=== PATIENT | male | born 1975 | race American Indian/Alaskan Native ===

== ENCOUNTER 2021-10-26 21:07 | Emergency (ER) | payer MEDICAID | END 2021-10-26 22:45 | disposition home or self-care (01) | LOC: JP.ED 21:07 | DX: M79.671 Pain in right foot (principal); E11.51 Type 2 diabetes mellitus with diabetic peripheral angiopathy without gangrene; E11.21 Type 2 diabetes mellitus with diabetic nephropathy; Z88.0 Allergy status to penicillin; Z72.0 Tobacco use; Z89.431 Acquired absence of right foot | CPT/HCPCS: 36415; 73630-26-RT; 73630-RT; 85025; 86140; 99283 ==